=== PATIENT | female | born 1960 | race Caucasian/White ===

== ENCOUNTER 2017-05-23 18:02 | Emergency (ER) | payer OTHER ==
[~2017-05-23] VITALS: Ht 152.4 cm; Wt 99.8 kg
[2017-05-23 18:18] VITALS: BP_SYST 108
[2017-05-23] MEDS ORDERED: METOCLOPRAMIDE HCL 10 MG/2 ML VIAL IVP ONE (20:15)
[2017-05-23] MEDS ORDERED: NS 500 ML IV ONE (20:15)
[2017-05-23 21:09] VITALS: BP_SYST 108
== END 2017-05-23 21:10 | disposition home or self-care (01) ==
LOC: SED 18:02
DX: M54.81 Occipital neuralgia (principal); I10 Essential (primary) hypertension
CPT/HCPCS: 96361; 96374; 99284; J2765; J7040